=== PATIENT | male | born 1955 | race Two or more races ===

== ENCOUNTER 2018-10-19 14:19 | Emergency (ER) | payer BC ==
[~2018-10-19] VITALS: Ht 162.6 cm; Wt 65.8 kg
[2018-10-19 15:45] LABS: ETHANOL < 3 MG/DL (0-0)
[2018-10-19] MEDS ORDERED: IV NORMAL SALINE 500 ML BAG IV ONE (16:00)
[2018-10-19 16:05] LABS: BASOPHILS # (AUTO) 0.1 K/uL (0.0-8.0); BASOPHILS % (AUTO) 0.9 % (0.0-2.0); EOSINOPHILS # (AUTO) 0.9 K/uL (0.0-0.7); EOSINOPHILS % (AUTO) 11.6 % (0.0-7.0); HEMATOCRIT 40.5 % (36.7-47.1); LYMPHOCYTES # (AUTO) 1.5 K/uL (20.0-40.0); LYMPHOCYTES % (AUTO) 19.3 % (20.5-51.5); MEAN CORPUSCULAR HEMOGLOBIN 30.4 uug (23.8-33.4); MEAN CORPUSCULAR HGB CONC 35 g/dL (32.5-36.3); MONOCYTES # (AUTO) 1.1 K/uL (2.0-10.0); MONOCYTES % (AUTO) 13.9 % (0.0-11.0); NEUTROPHILS # (AUTO) 4.2 K/uL (1.8-8.9); NEUTROPHILS % (AUTO) 54.3 % (38.5-71.5); PLATELET COUNT (AUTO) 307 K/uL (152-348); WHITE BLOOD COUNT (AUTO) 7.8 K/uL (3.6-10.2)
[2018-10-19 16:07] LABS: CARBON DIOXIDE 25 mmol/L (21-32); CHLORIDE 95 mmol/L (98-107); CREATININE 0.7 mg/dL (0.6-1.3); GLUCOSE 92 mg/dL (74-106); POTASSIUM 3.4 mmol/L (3.5-5.1); UREA NITROGEN, BLOOD 12 mg/dL (7-18)
[2018-10-19 16:13] LABS: ALANINE AMINOTRANSFERASE 92 U/L (16-63); ALKALINE PHOSPHATASE 80 U/L (50-136); ASPARTATE AMINOTRANSFERASE 119 U/L (15-37); BILIRUBIN,DIRECT 0.3 mg/dL (0.0-0.2); BILIRUBIN,TOTAL 0.8 mg/dL (0.2-1.0); TOTAL PROTEIN, SERUM 7.1 g/dL (6.4-8.2)
[2018-10-19 16:14] LABS: ACETAMINOPHEN < 2.0 ug/mL (10-30)
[2018-10-19 16:35] LABS: THYROID STIMULATING HORMONE 1.347 mIU/mL (0.358-3.740)
[2018-10-19 17:24] LABS: *BILIRUBIN,URIN 2+ (NEGATIVE); *BLOOD, URINE NEGATIVE (NEGATIVE); *COLOR,URINE Brown (YELLOW); *KETONES,URINE 1+ (NEGATIVE); *PROTEIN,URINE 1+ (NEGATIVE); LEUKOCYTE ESTERASE ,URINE NEGATIVE (NEGATIVE); NITRITE, URINE NEGATIVE (NEGATIVE); UGLUCOSE NEGATIVE (NEGATIVE)
[2018-10-19 17:29] LABS: *CLARITY,URINE SLIGHTLY HAZY (CLEAR)
[2018-10-19 17:31] LABS: BACTERIA,URINE MODERATE /HPF (NONE SEEN); CALCIUM OXALATE CRYSTALS,UR MODERATE /HPF (NONE SEEN); MUCUS,URINE MANY /LPF (0-FEW); URINE AMORPHOUS URATE FEW /HPF
[2018-10-19 17:34] LABS: *AMPHETAMINE, URINE NEGATIVE (NEGATIVE); *BARBITURATE, URINE NEGATIVE (NEGATIVE); *CANNABINOID, URINE NEGATIVE (NEGATIVE); *COCCAINE, URINE NEGATIVE (NEGATIVE); *OPIATE, URINE NEGATIVE (NEGATIVE); *PHENCYCLIDINE SCREEN,URINE NEGATIVE (NEGATIVE)
[2018-10-19] MEDS ORDERED: LEVOFLOXACIN 750 MG TABLET PO ONE (17:45)
[2018-10-19] MEDS ORDERED: LEVOFLOXACIN 750 MG TABLET ONE (17:48)
--- NOTE | 2018-10-19 18:04 | NUR ---
Pt given snack, ate w/ great appetite.
--- NOTE | 2018-10-19 18:22 | NUR ---
Pt able to walk w/ steady gait.
--- NOTE | 2018-10-19 18:36 | NUR ---
IV removed. Catheter intact and site benign. Pressure and 4x4 gauze applied to site. No bleeding noted.
[2018-10-19 18:38] VITALS: BP 118/60
--- NOTE | 2018-10-19 18:38 | NUR ---
Patient given written and verbal discharge instructions. Patient verbalizes understanding of instructions. Patient is ambulatory with steady gait. Refuses offer of group home placement. Patient given list of available shelters in surrounding area.
[2018-10-19] MEDS ORDERED: DICL75TA5 PO (23:31)
[2018-10-22] MEDS ORDERED: MULT-24 PO (13:48)
[2018-10-22] MEDS ORDERED: PHEN100C4 PO (13:48)
[2018-10-22] MEDS ORDERED: CEPH-570 PO (13:52)
== END 2018-10-19 18:55 | disposition home or self-care (01) ==
LOC: EDBD → ER 14:19
DX: N39.0 Urinary tract infection, site not specified (principal)
CPT/HCPCS: 36415; 70450; 71045; 80048; 80076; 80307; 81001; 82140; 83605; 84443; 84484; 85025; 85730; 87040; 87086; 93005; 99284; G0480 ×2; G0481; 70030-TC; A4663; C1758; J7040